=== PATIENT | female | born 1975 | race Caucasian/White ===

== ENCOUNTER 2018-04-28 11:49 | Emergency (ER) | payer MEDICARE, MEDICAID, SELFPAY ==
[2018-04-28] VITALS (8 sets, daily range): BP systolic 100–130; BP diastolic 69–85; PULSE 14–117; RESP 15–18; TEMP 36.6; O2SAT 98–100; BMI 17.1
--- NOTE | 2018-04-28 11:55 | ED.RN ---
PT WALKED OUT OF UNIT. POLICE NOTIFIED THAT PT IS PINK SLIPPED. AND TO RETREIVE.
--- NOTE | 2018-04-28 12:45 | ED.RN ---
PT FOUND ON RAMP OF ED. POLICE BROUGHT PT IN . PT AGGITATED AND RESITING. VIOLENT WITH POLICE. PLACED IN 4 POINT RESTRAINTS FOR PT AND STAFF SAFETY. ORDER OBTAINED.
[2018-04-28 13:01] LABS: Absolute Neutrophil Count 6.2 X10^3/uL (2.0-7.7); Basophil# 0.03 X10^3/uL; Basophil% 0.3 % (0-1); Eosinophil# 0.18 X10^3/uL; Eosinophils% 1.5 % (0-5); Hematocrit 48.3 % (37-47); Hemoglobin 16.5 g/dl (12.0-15.0); Mean Corp Hgb Conc 34.2 g/gl (32-36); Mean Corpuscular Hgb 33.9 pg (27.0-32.0); Mean Corpuscular Volume 99.2 fL (81-99); Mean Platelet Vol. 9.5 fl (6.2-12.0); Monocyte# 0.63 X10^3/uL; Monocyte% 5.4 % (0-10); Neutrophil # 6.19 X10^3/uL (2.7-7.7); Neutrophil % 52.7 % (47-70); Platelet Count 232 K/mm3 (150-450); RBC Distribution Width CV 13.8 % (11.6-14.6); RBC Distribution Width SD 49.6 fl (35.1-43.9); Red Blood Count 4.87 M/mm3 (4.2-5.4); White Blood Count 11.7 K/mm3 (4.4-11.0)
[2018-04-28 13:10] LABS: Anion Gap 12 (5-15); BUN 13 mg/dL (7-18); BUN/Creat Ratio 15.8 RATIO (10-20); Calcium,Total 8.8 mg/dL (8.5-10.1); Chloride 106 mmol/L (98-107); Creatinine, Serum 0.82 mg/dL (0.55-1.02); EST Glomerular Filtration Rate 81 mL/min (>60); Est Glom Filt Rate - Afr Amer 98 mL/min (>60); Estimated Creatinine Clearance 59.96 ml/min; Glucose 102 mg/dL (74-106); Potassium 3.7 mmol/L (3.5-5.1); Sodium Level 137 mmol/L (136-145)
[2018-04-28 13:11] LABS: POSITIVE COUNT NO; POSITIVE DIFFERENTIAL NO; POSITIVE MORPHOLOGY NO
[2018-04-28 13:20] LABS: Pregnancy, Serum, hCG Quali. NEGATIVE Negative (0-9 Nonpreg)
--- NOTE | 2018-04-28 14:30 | ED.RN ---
PT VOICED NEED TO URINATE. REMOVED RESTRAINTS UP TO TOILET, URINE OBTAINED. PT REMAINS COOPERATIVE. CLOTHING REMOVED FROM ROOM. RESTRAINTS LEFT OFF AT THIS TIME. RESTING IN BED.
[2018-04-28 14:55] LABS: Amphetamine Urine VISTA NEGATIVE (<1000 ng/mL); Barbiturate Urine VISTA NEGATIVE (< 200 ng/mL); Benzodiazepine Urine VISTA NEGATIVE (< 200 ng/mL); Cocaine Urine VISTA NEGATIVE (< 300 ng/mL); Ecstacy Urine VISTA NEGATIVE (< 500 ng/mL); Methadone Urine VISTA NEGATIVE (< 300 ng/mL); PCP Urine VISTA NEGATIVE (< 25 ng/mL); THC Urine VISTA NEGATIVE (< 50 ng/mL); Vista UDS pH Range 6
--- NOTE | 2018-04-28 15:36 | ED.RN ---
NITZA MELISSA WILL BE IN TO ASSESS PATIENT SOON POSSIBLE, SHE IS CURRENTLY ON ANOTHER CASE
--- NOTE | 2018-04-28 17:13 | ED.VISSUMM ---
- ER Visit Summary Date of Service: 04/28/18 Chief Complaint: Abnormal behavior History of Present Illness: The patient is a 42 F presenting with abnormal behavior. Patient has been running around naked. Crisis was aware of her prior to arrival. Her father had discussed with [facility] and he would like her transferred to [facility]. She has been off her medications. She has a history of paranoid schizophrenia. She was brought in by police. Physical Examination: Vitals are stable. Patient is afebrile. Alert no acute distress. HEENT exam is unremarkable. Neck is supple. Lungs are clear and equal bilaterally. Heart is regular rate and rhythm. Abdomen is soft nontender nondistended. Extremities are unremarkable. Skin is warm and dry. No focal neurologic deficit. Agitated Remainder of exam is unremarkable. Emergency Department Course and Treatment: CBC shows white count 11.7. Chemistries unremarkable. HCG negative. Tox is negative. Alcohol negative. Discussed with the counseling center for evaluation. Disposition: Per counseling center Impression: Psychosis, paranoid schizophrenia This note was generated with [employer] dictation software. It may contain incorrect words, spelling, and punctuation that were not noted in review of the chart prior to signing ED Disposition - Plan for ED Patient: Chief Complaint: Mental Health Referrals: Rosemarie Ward PA [Primary Care Provider] -
--- NOTE | 2018-04-28 21:01 | ED.RN ---
ATTEMPTED TO CALL FATHER TO UPDATE ON PT LEAVING, NO ANSWER, UNABLE TO LEAVE MESSAGE.
== END 2018-04-28 21:00 ==
PROVIDERS: Emergency Provider Emergency Medicine; Family Provider Physician Assistant; PCP Physician Assistant
DX: F29 Unspecified psychosis not due to a substance or known physiological condition (principal); F20.0 Paranoid schizophrenia
CPT/HCPCS: 80048; 80307; 80320; 84703; 85025; 99284; G0480